=== PATIENT | male | born 1990 ===

== ENCOUNTER → 2021-06-29 09:24 | Outpatient (CLI) | payer OTHER, SELFPAY ==
[2021-06-29 19:59] LABS: COVID19 - ORCAS (NP or Nasal) Negative (Negative)
== END ==
PROVIDERS: PCP Physician Assistant; Visit Provider Physician Assistant
DX: Z20.822 Contact with and (suspected) exposure to COVID-19 (principal); J02.9 Acute pharyngitis, unspecified
CPT/HCPCS: 87070; 87077; 87147; U0003